=== PATIENT | female | born 1940 | race Caucasian/White ===

== ENCOUNTER → 2017-04-01 | Outpatient (CLI) | payer MEDICARE ==
[~2017-04-01] MED LIST: REGADENOSON 0.4 MG/5 ML DISP.SYRIN. IV ONE
--- NOTE | 2017-04-01 13:31 | PCVCIMAG ---
APPROVED REPORT Exam: Nuclear Stress Test Indication: Pre-Operative CV evaluation Patient Location: Out-Patient Stress Nurse: Iesha Johnson RN; Felipa Stevens RN [place] Tech:LEILA ZendejasMT Ht: 5 ft 5 in Wt: 136 lbs BSA: 1.68 m2 HR: 56 bpm BP: 135/63 mmHg BMI: 21.9 Rhythm: NSR Medical History Medical History: Hyperlipidemia, Age, CVD, Family Hx Premature CAD Medications: Atorvastatin, ASA Allergies: No known drug allergies Pretest Chest Pain Characteristics: No chest pain Exercise History: Physically active Physical Disabilities: Knee - impending knee surgery Stress Test Details Stress Test: Pharmacologic stress testing performed using 0.4 mg of regadenoson per 5 mL given IV over 10 seconds. Reason for pharmacologic stress test: physical limitation. HR Resting HR: 56 bpmMax Heart Rate (APMHR): 144 bpm Max HR Achieved: 100 bpmTarget HR (85% APMHR): 122 bpm % of APMHR: 69 Recovery HR: 85 bpm HR response to stress: Normal HR response to stress BP Resting BP: 135/63 mmHg Max BP: 144/65 mmHg Recovery BP: 141/59 mmHg ECG Resting ECG: Sinus Rhythm Stress ECG: Sinus Rhythm ST Change: Non-ischemic Recovery ECG: Sinus Rhythm Clinical Reason for Termination: Completed protocol Stress Symptoms: Dyspnea, resolved during recovery Exercise duration: 0 min 55 sec Exercise capacity: 1 METs Symptoms resolved during recovery. NM EXAM: Myocardial Perfusion REST/STRESS Imaging Protocol: Rest Tc-99m/Stress Tc-99m 1 day Resting Data Rest SPECT myocardial perfusion imaging was performed in supine position 45 minutes following the intravenous injection of 8 mCi of Tc-99m Sestamibi. Time of rest injection: Date: 04/01/2017 Time of rest imaging: Date: 04/01/2017 Pharmacologic Stress Pharmacologic stress test was performed by injecting Regadenoson 0.4 mg IV push followed by the intravenous injection of 24.3 mCi of Tc-99m Sestamibi. Time of stress injection: Date: 04/01/2017 Time of stress imaging: Date: 04/01/2017 Heart Rate at time of stress injection: 83 bpm. Gated Stress SPECT was performed 45 minutes after stress injection. The images were gated to evaluate regional wall motion and calculate left ventricular ejection fraction. Study Quality Study: Good Study Data Post stress, the left ventricular ejection was 75%.. Perfusion Normal perfusion on both the stress and rest images. Wall Motion Normal left ventricular wall motion. Clinical Findings: Nondiagnostic EKG Findings: Nonischemic Nuclear Conclusion This study is of low probability for inducible ischemia or prior infarct. Normal global and segmental LV systolic function. No prior study available for comparison.
== END | disposition home or self-care (01) ==
LOC: PCVCIMAG 08:15
PROVIDERS: ATTEND Internal Medicine Cardiovascular Disease
DX: Z01.818 Encounter for other preprocedural examination (principal); I25.10 Atherosclerotic heart disease of native coronary artery without angina pectoris; E78.00 Pure hypercholesterolemia, unspecified; Z79.899 Other long term (current) drug therapy; Z82.49 Family history of ischemic heart disease and other diseases of the circulatory system
CPT/HCPCS: 78452; 93017; A9500; J2785